=== PATIENT | female | born 1935 | race Caucasian/White ===

== ENCOUNTER → 2017-05-15 | Outpatient (CLI) | payer BC, OTHER ==
[~2017-05-15] MED LIST: ASCO500T16 PO; ASMIN/30 INH; ASPEC81 PO; CETI10TA84 PO; CLTP PO; FLUO10CA48 PO; INDA1TAB3 PO; LOSA1TAB38 PO; MINERAL PO; MULTIVITAMIN PO; OMEG10007 PO; PRLSR20 PO; SYN125 PO
== END | disposition home or self-care (01) ==
LOC: C.MAMM 10:16
PROVIDERS: ATTEND Internal Medicine
DX: M81.0 Age-related osteoporosis without current pathological fracture (principal)

== ENCOUNTER → 2017-10-15 | Outpatient (CLI) | payer OTHER ==
[2017-10-15 12:27] LABS: BLOOD UREA NITROGEN 19 mg/dl (7-18); BUN/CREATININE RATIO 18.8 (10-20); CALCIUM 8.6 mg/dl (8.5-10.1); CARBON DIOXIDE 33 mmol/L (21-32); CHLORIDE 102 mmol/L (98-107); CREATININE 1.03 mg/dl (0.60-1.20); GLUCOSE 112 mg/dl (70-99); SODIUM 139 mmol/L (136-145)
[2017-10-15 12:41] LABS: URIC ACID 4.9 mg/dl (2.6-7.2)
== END | disposition home or self-care (01) ==
LOC: C.LABBFT 09:20
PROVIDERS: ATTEND Physician Assistant Medical
DX: E03.9 Hypothyroidism, unspecified (principal); I10 Essential (primary) hypertension; M10.9 Gout, unspecified

== ENCOUNTER 2021-09-02 09:41 | Inpatient (IN) ==
--- NOTE | 2021-09-02 10:11 | Emergency Department Note ---
History of Present Illness General Chief complaint: Hypertension Stated complaint: HIGH BP DIZZY Time Seen by Provider: 09/02/21 09:53 Source: patient Mode of arrival: ambulatory Limitations: no limitations History of Present Illness Provider complaint: Vertigo, hypertension Onset (ago): day(s) 3 Associated symptoms: no chest pain, no fever/chills, no headaches, no nausea/vomiting, no shortness of breath or no syncope Treatments prior to arrival: none This is an 85-year-old female presents emergency department complaining of vertigo and high blood pressure this morning. Patient states she has noted intermittent vertigo when turning to the left while in bed over the last several nights. She states she has intermittently had episodes during the day but it does seem more pronounced at night. She states this morning the dizziness felt more severe, and was not easing so she asked her to come help her and check her blood pressure. They found an elevated blood pressure reading at home. Patient states she does take blood pressure medication however it had never been this high previously. She denies headaches, vision changes, tinnitus, fevers or chills. She denies any recent chest pain, palpitations, shortness of breath, leg swelling. No recent change in bowel or bladder function. Patient states she did recently start taking an OTC supplement to help with nocturia. Patient does take low-dose aspirin daily, no other antiplatelet or anticoagulation medications. No recent trauma or change in activity. Patient states she does have a prior history of vertigo which initially started following a closed head injury 4 to 5 years ago. She states she did complete vestibular physical therapy and it had completely resolved until several nights ago when it returned again. No recent URI symptoms or infection. Pt seen during a time of high acuity and national emergency pandemic while wearing PPE. Home Medications Medication Instructions Recorded Confirmed Type allopurinol 300 mg tablet 150 mg PO QAM tab 06/30/19 09/02/21 History diphenhydramine HCl 25 mg tablet 25 mg PO HS PRN tab 06/30/19 09/02/21 History omeprazole 20 mg capsule,delayed 20 mg PO DAILY PRN #30 cap 07/08/19 09/02/21 Rx release ascorbic acid (vitamin C) 500 mg 500 mg PO QAM 09/02/21 09/02/21 History capsule aspirin 81 mg tablet,delayed 81 mg PO QAM 09/02/21 09/02/21 History release (Adult Low Dose Aspirin) calcium carbonate 600 mg(1,500 1 tab PO QAM 09/02/21 09/02/21 History mg)-vitamin D3 800 unit chewable tablet (Caltrate 600 plus D) cetirizine 10 mg capsule (Zyrtec) 10 mg PO QAM PRN 09/02/21 09/02/21 History levothyroxine 125 mcg tablet 125 mcg PO QAM 09/02/21 09/02/21 History losartan 100 1 tab PO QAM 09/02/21 09/02/21 History mg-hydrochlorothiazide 25 mg tablet multivitamin 1 tab PO QAM 09/02/21 09/02/21 History omega-3 fatty acids 1,000 mg 1,000 mg PO QAM 09/02/21 09/02/21 History capsule (Fish Oil Concentrate) sour pardo extract 1,000 mg 1,000 mg PO UD PRN 09/02/21 09/02/21 History capsule (Tart Pardo Extract) Allergies Allergy/AdvReac Type Severity Reaction Status Date / Time Sulfa (Sulfonamide Allergy Severe TONGUE Verified 09/02/21 10:39 Antibiotics) SWELLING JORGE Inhibitors AdvReac cough Verified 09/02/21 10:39 Past Med/Surg History Medical History Actinic keratosis Allergic rhinitis Anxiety Asthma Depression Gastroesophageal reflux disease Gout History of basal cell carcinoma Hypertension Hypothyroidism Idiopathic urticaria Impaired fasting glucose Osteoporosis Personal history of malignant melanoma of skin Polycythemia Seborrheic keratosis Surgical History H/O colonoscopy History of dilatation and curettage History of lumpectomy of right breast S/P tonsillectomy Status post Mohs micrographic surgery for basal cell carcinoma (BCC) Status post partial thyroidectomy Family History Aunt Breast cancer Mother Myocardial infarction Father Myocardial infarction Denies family history of Ovarian cancer Prostate cancer Colorectal cancer Social History Smoking Status: Never smoker Age Started Using Tobacco: 16; Age Quit Using Tobacco: 26; Hx Alcohol Use: Yes Alcohol type: wine Alcohol Intake Frequency Comment: 2-3 glasses of homemade wine per day. 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 Other Information That Helps Us Care for You: No Feels Safe at Home: Yes Dental Care, Regularly: Yes Physical Activity Frequency: Does not Exercise Assistive Devices: Glasses and Oxygen - Continuous Review of Systems A total of 10 systems reviewed and were otherwise negative All systems reviewed & are unremarkable except as noted in HPI & below Physical Exam Vital Signs Vital Signs - 24 hr 09/02/21 09:46 09/02/21 10:00 09/02/21 10:30 Temperature 36.3 C L Temperature Source Temporal Artery Scan Pulse Rate 75 Pulse Rate [Apical] 82 72 Pulse Rhythm Regular Pulse Strength Normal Respiratory Rate 20 21 18 Respiratory Effort / Characteristics Non-Labored Spontaneous Respiratory Depth Normal Respiratory Pattern Regular Blood Pressure 185/93 H Blood Pressure [Right Arm] 181/101 H 165/99 H Blood Pressure Mean 123 Blood Pressure Mean [Right Arm] 127 121 Blood Pressure Position Sitting Blood Pressure Position [Right Arm] Sitting Pulse Oximetry 92 93 91 Oxygen Delivery Method Room Air Room Air Room Air Oxygen Flow Rate Sepsis New/Unexplained Change in Mental Status N/A Sepsis Action Taken by Nursing No Action Required Oxygen Flow Rate - Titration Fraction of Inspired Oxygen - Titration 09/02/21 11:01 09/02/21 11:30 09/02/21 11:41 Temperature Temperature Source Pulse Rate Pulse Rate [Apical] 72 70 Pulse Rhythm Pulse Strength Respiratory Rate 16 18 Respiratory Effort / Characteristics Respiratory Depth Respiratory Pattern Blood Pressure Blood Pressure [Right Arm] 159/86 H 162/88 H Blood Pressure Mean Blood Pressure Mean [Right Arm] 110 112 Blood Pressure Position Blood Pressure Position [Right Arm] Sitting Pulse Oximetry 91 89 L 88 L Oxygen Delivery Method Room Air Room Air Room Air Oxygen Flow Rate Sepsis New/Unexplained Change in Mental Status Sepsis Action Taken by Nursing Oxygen Flow Rate - Titration 2 Fraction of Inspired Oxygen - Titration 97 09/02/21 12:00 09/02/21 13:00 Temperature Temperature Source Pulse Rate Pulse Rate [Apical] 74 70 Pulse Rhythm Pulse Strength Respiratory Rate 22 15 Respiratory Effort / Characteristics Respiratory Depth Respiratory Pattern Blood Pressure Blood Pressure [Right Arm] 176/86 H 148/94 H Blood Pressure Mean Blood Pressure Mean [Right Arm] 116 112 Blood Pressure Position Blood Pressure Position [Right Arm] Sitting Pulse Oximetry 99 99 Oxygen Delivery Method Nasal Cannula Nasal Cannula Oxygen Flow Rate 2 2 Sepsis New/Unexplained Change in Mental Status Sepsis Action Taken by Nursing Oxygen Flow Rate - Titration Fraction of Inspired Oxygen - Titration GENERAL: alert, well appearing, well nourished, no distress, non-toxic EYE EXAM: normal conjunctiva, PERRL and EOM's grossly intact, no nystagmus OROPHARYNX: no exudate, no erythema, lips, buccal mucosa, and tongue normal and mucous membranes are moist NECK: supple, no nuchal rigidity, no adenopathy, non-tender LUNGS: Clear to auscultation. Normal chest wall mechanics, no w/r/r HEART: no murmurs, S1 normal and S2 normal, occasional PVC noted on telemetry, patient states she is aware of this and these have previously been noted ABDOMEN: abdomen soft, non-tender, normo-active bowel sounds, no masses, no rebound or guarding. BACK: Back is symmetrical on inspection and there is no deformity, no midline tenderness, no CVA tenderness. SKIN: no rashes and no bruising UPPER EXTREMITIES: upper extremities are grossly normal. FROM, nml pulses b/l. LOWER EXTREMITIES: No pitting edema. FROM, nml pulses b/l. NEURO EXAM: Normal sensorium, cranial nerves II-XII grossly intact, normal speech, no facial droop, no gross weakness of arms, no gross weakness of legs. No ataxia. Gross sensation intact. Course Course 1226: Patient updated on results at bedside. Patient's blood pressure is still elevated, the patient states she had not taken any of her morning medications prior to coming in. She states she feels her dizziness is improved, however has not walked around to see if it comes back and has not attempted to lay flat and roll over in bed. I discussed with the patient the observation of her hypoxia down to 88% on room air. While this was at rest, patient states she notes at home she feels significantly short of breath with any exertion. Patient denies that this is ever been evaluated by her PCP. She denies any prior cardiac or pulmonary evaluation by a specialist. No prior echo or stress test. Patient states she has a very remote smoking history in her youth, no prior diagnosis of COPD or asthma. Patient does feel noticeably improved with addition of oxygen here. I suspect that if her room air saturation reached 88% at rest, with an ambulatory trial she would be even further diminished. 1252: Discussed with [facility] hospitalist team. They would like CT of the chest added. Administered Medications Allopurinol (Allopurinol 300 Mg Tab) 150 mg PO QAM MOON Stop: 10/03/21 08:59 Last Admin: 09/03/21 08:04 Dose: 150 mg Documented by: [id number] Aspirin (Aspirin 81 Mg Ectab) 81 mg PO QAM MOON Stop: 10/03/21 08:59 Last Admin: 09/03/21 08:05 Dose: 81 mg Documented by: [id number] Cetirizine HCl (Cetirizine Hcl 10 Mg Tablet) 10 mg PO QAM PRN PRN Reason: allergy symptoms Stop: 10/02/21 15:58 Last Admin: 09/03/21 11:46 Dose: 10 mg Documented by: [id number] Doxycycline Hyclate (Doxycycline Hyclate 100 Mg Cap) 100 mg PO BID MOON Stop: 09/05/21 09:59 Last Admin: 09/03/21 10:57 Dose: 100 mg Documented by: [id number] HCTZ/Losartan Potassium (Losartan/Hctz 50/12.5mg Tab) 1 tab PO QAM MOON Stop: 10/03/21 08:59 Last Admin: 09/03/21 08:05 Dose: 1 tab Documented by: [id number] Levothyroxine Sodium (Levothyroxine Sodium 125 Mcg Tablet) 125 mcg PO DAILYBB [facility] Stop: 10/03/21 06:29 Last Admin: 09/03/21 06:26 Dose: 125 mcg Documented by: [id number] Multivitamins (Multivitamin Tab) 1 tab PO QAM MOON Stop: 10/03/21 08:59 Last Admin: 09/03/21 08:06 Dose: 1 tab Documented by: [id number] Discontinued Medications Gadobutrol (Gadobutrol 30ml Vial) 7.2 ml IV ONCE ONE Stop: 09/03/21 16:03 Last Admin: 09/03/21 16:02 Dose: 7.2 ml Documented by: [id number] Hydrochlorothiazide (Hydrochlorothiazide 25 Mg Tab) 12.5 mg PO NOW STA Stop: 09/02/21 12:37 Last Admin: 09/02/21 13:17 Dose: 12.5 mg Documented by: [id number] Sodium Chloride (Nss) 500 mls @ 125 mls/hr IV .Q4H MOON Stop: 10/02/21 10:14 Last Admin: 09/02/21 17:11 Dose: Not Given Documented by: [id number] Infusion: 09/02/21 17:05 Dose: 0 mls/hr Documented by: [id number] Admin: 09/02/21 10:25 Dose: 125 mls/hr Documented by: [id number] Ioversol (Optiray 320 125ml) 120 ml IV ONCE ONE Stop: 09/02/21 11:29 Last Admin: 09/02/21 11:29 Dose: 120 ml Documented by: [id number] Losartan Potassium (Losartan Potassium 25 Mg Tab) 25 mg PO NOW STA Stop: 09/02/21 12:37 Last Admin: 09/02/21 13:17 Dose: 25 mg Documented by: [id number] Medical Decision Making Differential Diagnosis Differential diagnosis includes etiologies such as benign positional vertigo, dehydration, hypovolemia, anemia, tumor, infection, hypoglycemia, electrolyte abnormalities, cardiac sources, intracerebral event, toxicologic, neurologic, as well as others were entertained. Medical Records Attestation: I reviewed the patient's medical records. Home Medications Current Medication List: was personally reviewed by me Laboratory Data Attestation: I reviewed the patient's lab results. Result diagrams: 09/03/21 08:11 09/03/21 08:11 Lab Results 09/02/21 09/02/21 Range/Units 10:20 10:20 WBC 4.55 L (4.8-10.8) K/uL RBC 4.77 (4.2-5.4) M/uL Hgb 16.3 H (12.0-16.0) g/dL Hct 48.4 H (37-47) % MCV 101.5 H (80-100) fL MCH 34.2 H (25-34) pg MCHC 33.7 (32-36) g/dL RDW Std Deviation 49.5 H (36.4-46.3) fL RDW Coeff of [place] 13.3 (11.5-14.5) % Plt Count 170 (130-400) K/uL MPV 11.8 H (7.4-10.4) fL Immature Gran % (Auto) 0.2 % Neut % (Auto) 52.7 % Lymph % (Auto) 31.6 % [place] % (Auto) 9.2 % Eos % (Auto) 5.9 % Baso % (Auto) 0.4 % Neut # (Auto) 2.39 (1.4-6.5) K/uL Lymph # (Auto) 1.44 (1.2-3.4) K/uL [place] # (Auto) 0.42 (0.11-0.59) K/uL Eos # (Auto) 0.27 (0-0.5) K/uL Baso # (Auto) 0.02 (0-0.2) K/uL Immature Gran # (Auto) 0.01 (0.00-0.02) K/uL Sodium 142 (136-145) mmol/L Potassium 3.6 (3.5-5.1) mmol/L Chloride 105 (98-107) mmol/L Carbon Dioxide 32 (21-32) mmol/L Anion Gap 5.0 (3-11) BUN 19 H (7-18) mg/dl Creatinine 0.94 (0.6-1.2) mg/dl Est Cr Clr Drug Dosing Not Reportable Est GFR ( Amer) 64.1 ml/min Est GFR (Non-Af Amer) 55.3 ml/min BUN/Creatinine Ratio 20.1 H (10-20) Glucose 101 H (70-99) mg/dl Calcium 9.1 (8.5-10.1) mg/dl Magnesium 2.2 (1.8-2.4) mg/dl Total Bilirubin 0.5 (0.2-1) mg/dl AST 21 (15-37) U/L ALT 20 (12-78) U/L Alkaline Phosphatase 71 (45-117) U/L Troponin I < 0.015 (0-0.045) ng/ml NT-Pro-B Natriuret Pep 278 (0-1800) pg/ml Total Protein 6.8 (6.4-8.2) gm/dl Albumin 3.2 L (3.4-5.0) gm/dl Globulin 3.6 (2.5-4.0) gm/dl Albumin/Globulin Ratio 0.9 (0.9-2) Lipase 150 (73-393) U/L TSH 1.870 (0.300-4.500) uIu/ml Imaging Data Radiologist's Impression: Head CT 09/02/21 10:[address] DOSE: HISTORY: dizzy, htn TECHNIQUE: Multiaxial CT images of the head were performed without the use of in travenous contrast. Automated exposure control was utilized for this study. A dose lowering technique was utilized adhering to the principles of ALARA. Comparison: Head CT 04/10/2015. Findings: The paranasal sinuses and mastoid air cells are clear. The calvarium and skull base are intact. There is no mass, hematoma, midline shift, acute infarct. White matter hypodensity is nonspecific but suggestive of microvascular ischemic change. The ventricles and sulci demonstrate mild age-related involutional changes. Impression: No acute intracranial abnormality. Atrophy and microvascular ischemic changes. ACT 112: Negative or not required by law. Electronically signed by: Sudeep Everett M.D. 09/02/2021 11:35 AM Head CTA 09/02/21 10:06 HEAD & NECK CTA HISTORY: dizzy, htn TECHNIQUE: Multiaxial CT images of the head were performed following the intravenous administration of contrast to evaluate the major cerebral vessels. Multiaxial CT images of the neck were also performed following the intravenous administration of contrast to evaluate the major cervical vessels. Maximum intensity projection images were also obtained. A dose lowering technique was utilized adhering to the principles of ALARA. COMPARISON: None. FINDINGS: There is no mass, hematoma, midline shift, or acute infarct. Visualized intracranial internal carotid arteries, distal vertebral arteries, and basilar artery are widely patent. 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 Bilateral posterior circulations which are considered to be normal variants. The major dural venous sinuses are patent. The aortic arch and proximal great vessels are widely patent. There is no significant stenosis, occlusion, or dissection identified within the bilateral common carotid, internal carotid, or vertebral arteries. The right thyroid lobe appears surgically absent. IMPRESSION: 1. No significant stenosis, occlusion, or aneurysm within the [place]. 2. No significant stenosis, occlusion, or dissection identified within the carotid or vertebral arteries. ACT 112: Negative or not required by law. Electronically signed by: Sudeep Everett M.D. 09/02/2021 11:43 AM Neck CTA 09/02/21 10:06 HEAD & NECK CTA HISTORY: dizzy, htn TECHNIQUE: Multiaxial CT images of the head were performed following the intravenous administration of contrast to evaluate the major cerebral vessels. M ultiaxial CT images of the neck were also performed following the intravenous administration of contrast to evaluate the major cervical vessels. Maximum intensity projection images were also obtained. A dose lowering technique was utilized adhering to the principles of ALARA. COMPARISON: None. FINDINGS: There is no mass, hematoma, midline shift, or acute infarct. Visualized intracranial internal carotid arteries, distal vertebral arteries, and basilar artery are widely patent. 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 Bilateral posterior circulations which are considered to be normal variants. The major dural venous sinuses are patent. The aortic arch and proximal great vessels are widely patent. There is no significant stenosis, occlusion, or dissection identified within the bilateral common carotid, internal carotid, or vertebral arteries. The right thyroid lobe appears surgically absent. IMPRESSION: 1. No significant stenosis, occlusion, or aneurysm within the [place]. 2. No significant stenosis, occlusion, or dissection identified within the carotid or vertebral arteries. ACT 112: Negative or not required by law. Electronically signed by: Sudeep Everett M.D. 09/02/2021 11:43 AM Chest X-Ray 09/02/21 11:40 XR chest 1V portable HISTORY: hypoxia COMPARISON: Chest 05/09/2014. FINDINGS: The cardiac silhouette remains top normal in size. A right basilar linear density consistent with scarring or subsegmental atelectasis. This remains unchanged. Hazy appearance to the medial lung bases likely represents prominent mediastinal fat. This is also stable. No new focal lung consolidations to suggest pneumonia. No evidence for pulmonary edema. No pleural effusions. No pneumothorax. Old, healed left-sided rib fractures. IMPRESSION: Chronic changes as described above. No acute process within the chest. ACT 112: Negative or not required by law. Electronically signed by: Sudeep Everett M.D. 09/02/2021 11:[address] 09/02/21 13:02 CT chest diagnostic wo con CT DOSE: 335.93 mGy.cm HISTORY: dyspnea, hypoxia TECHNIQUE: Multiaxial CT images of the chest were performed without contrast. A dose lowering technique was utilized adhering to the principles of ALARA. COMPARISON: Chest CT 02/04/2012. FINDINGS: No pneumothorax. No pleural effusions. Small fat-containing right- sided [place] hernia, unchanged. Mild diffuse bronchial wall thickening. However, the central airways are patent. Mild interstitial thickening with scattered tree-in-bud nodular opacities seen within the lungs. Small wedge- shaped focal density within the left upper lobe posteriorly on image 50. This favors an area of scarring. There are small scarlike densities within the lung apices. There is a 4 mm nodule within the right upper lobe on image 99. There is a 5 mm subpleural nodule within the right lower lobe on image 153. This remains unchanged. No new focal lung consolidations. No suspicious lytic are blastic osseous lesions. A 1.4 cm hypodense lesion within the left hepatic lobe. This favors a cyst. There is a partially calcified exophytic cyst at the splenic dome. The visualized adrenal glands are unremarkable. There is a small hiatus hernia. The heart is normal in size. No pericardial effusion. Normal caliber thoracic aorta. IMPRESSION: 1. Mild diffuse bronchial wall thickening. This is likely chronic. 2. Mild interstitial thickening with scattered tree-in-bud nodular opacities. This favors a chronic infectious bronchiolitis. 3. No focal lung consolidations. 4. Additional findings as described above. ACT 112: Negative or not required by law. Electronically signed by: Sudeep Everett M.D. 09/02/2021 2:29 PM ECG Data Attestation: I personally reviewed and interpreted this ECG as follows: Indication: + SOB/dyspnea Rate (beats per minute): 82 Rhythm: + normal sinus ECG Intervals/blocks: + First degree AV block, + Normal QRS and + Normal QT ECG [place]: + Normal ECG ST segments: + Normal ST segments ECG Findings: + PVCs MDM Narrative This is an 85-year-old female who presents emergency department complaining of dizziness and hypertension. Patient does have a history of hypertension and does take medication. No recent trauma or change in activity. Patient with remote history of vertigo however had not had issues until the last several days. Patient well-appearing here and had a normal and nonfocal neuro exam. Patient's blood pressure improved while here, patient underwent labs and CT imaging as a precaution given advanced age and comorbidities. He was noted by nursing staff that patient became hypoxic while at rest, and did appear short of breath with attempt to go to the bathroom. When discussed with this at bedside patient stated she has been short of breath with exertion for a while, cannot recall when this began, and has never had any evaluation for it. Patient did states she is markedly improved with the oxygen in place. Patient denied any accompanying chest pain but does state that with any exertion at home or attempt to go up steps, she becomes very short of breath and has to stop and rest for least 10 minutes before her symptoms began to susu. While there is no obvious evidence of acute neurologic etiology of her dizziness, I am more concerned about the hypoxia and possible underlying etiology. Case discussed with hospitalist for additional cardiac evaluation as a precaution. They did request a CT of the chest on the patient as a precaution to rule out additional pulmonary etiology including PE. This was performed and was negative. Patient remained well-appearing and hemodynamically stable in the emergency room. Patient's blood pressure did improve. Whether may be a component of hypertensive urgency, there is no evidence of hypertensive emergency. I feel it is more likely patient's recurrent dizziness was caused by her benign positional vertigo, and the distress of her symptoms may have contributed to her hyperten kimi. An order was placed for continuous cardiac monitoring. The monitor shows a rate of _86__ with _normal sinus__ rhythm. Impression & Plan Dizziness, Hypoxia, Hypertension Discharge Plan Visit Data Chief Complaint: Hypertension Stated Complaint: HIGH BP DIZZY Discharge Problem: Dizziness, Hypoxia, Hypertension Patient Disposition: Admitted As Inpatient Discharge Instructions Interventions: ED Discharge Assessment Last Done: 09/02/21 14:47
[2021-09-02] MEDS: SODIUM CHLORIDE 0.9% 500 ML IV SCH ×2 (10:25→17:11)
[2021-09-02 10:39] LABS: Basophils # (auto) 0.02 K/uL (0-0.2); Basophils % (auto) 0.4 %; Eosinophils # (auto) 0.27 K/uL (0-0.5); Eosinophils % (auto) 5.9 %; Hematocrit (blood only) 48.4 % (37-47); Hemoglobin 16.3 g/dL (12.0-16.0); Immature Granulocytes # (auto) 0.01 K/uL (0.00-0.02); Immature Granulocytes % (auto) 0.2 %; Lymphocytes # (auto) 1.44 K/uL (1.2-3.4); Lymphocytes % (auto) 31.6 %; Mean Corpuscular Hemoglobin 34.2 pg (25-34); Mean Corpuscular Hgb Conc 33.7 g/dL (32-36); Mean Corpuscular Volume 101.5 fL (80-100); Mean Platelet Volume 11.8 fL (7.4-10.4); Monocytes # (auto) 0.42 K/uL (0.11-0.59); Monocytes % (auto) 9.2 %; Neutrophils # (auto) 2.39 K/uL (1.4-6.5); Neutrophils % (auto) 52.7 %; Platelet Count 170 K/uL (130-400); RDW Coefficient of Variation 13.3 % (11.5-14.5); RDW Standard Deviation 49.5 fL (36.4-46.3); Red Blood Count 4.77 M/uL (4.2-5.4); White Blood Count 4.55 K/uL (4.8-10.8)
[2021-09-02 10:59] LABS: Alanine Aminotransferase 20 U/L (12-78); Albumin Level 3.2 gm/dl (3.4-5.0); Aspartate Aminotransferase 21 U/L (15-37); BUN Creatinine Ratio 20.1 (10-20); Blood Urea Nitrogen 19 mg/dl (7-18); Calcium 9.1 mg/dl (8.5-10.1); Carbon Dioxide 32 mmol/L (21-32); Chloride 105 mmol/L (98-107); Est GFR (African American) 64.1 ml/min; Est GFR (Non-African American) 55.3 ml/min; Glucose 101 mg/dl (70-99); Lipase 150 U/L (73-393); Magnesium 2.2 mg/dl (1.8-2.4); Potassium 3.6 mmol/L (3.5-5.1); Sodium 142 mmol/L (136-145)
[2021-09-02 11:10] LABS: Albumin Globulin Ratio 0.9 (0.9-2); Alkaline Phosphatase 71 U/L (45-117); Bilirubin,Total 0.5 mg/dl (0.2-1); Globulin 3.6 gm/dl (2.5-4.0); NT Pro B Type Natriuretic Pept 278 pg/ml (0-1800); Total Protein 6.8 gm/dl (6.4-8.2); Troponin I < 0.015 ng/ml (0-0.045)
[2021-09-02] MEDS ORDERED: OPTIRAY 320 125ml IV ONE (11:28)
--- NOTE | 2021-09-02 11:37 | CT Scan Report ---
HEAD CT NONCONTRAST CT DOSE: HISTORY: dizzy, htn TECHNIQUE: Multiaxial CT images of the head were performed without the use of intravenous contrast. A utomated exposure control was utilized for this study. A dose lowering technique was utilized adheri ng to the principles of ALARA. Comparison: Head CT 04/10/2015. Findings: The paranasal sinuses and mastoid air cells are clear. The calvarium and skull base are int act. There is no mass, hematoma, midline shift, acute infarct. White matter hypodensity is nonspecifi c but suggestive of microvascular ischemic change. The ventricles and sulci demonstrate mild age-rela millicent involutional changes. Impression: No acute intracranial abnormality. Atrophy and microvascular ischemic changes. ACT 112: Negative or not required by law. Electronically signed by: Sudeep Everett M.D. 09/02/2021 11:35 AM
--- NOTE | 2021-09-02 11:44 | CT Scan Report ---
HEAD & NECK CTA HISTORY: dizzy, htn TECHNIQUE: Multiaxial CT images of the head were performed following the intravenous administration o f contrast to evaluate the major cerebral vessels. Multiaxial CT images of the neck were also perform ed following the intravenous administration of contrast to evaluate the major cervical vessels. Maxim um intensity projection images were also obtained. A dose lowering technique was utilized adhering to the principles of ALARA. COMPARISON: None. FINDINGS: There is no mass, hematoma, midline shift, or acute infarct. Visualized intracranial internal carotid arteries, distal vertebral arteries, and basilar artery are widely patent. There is no significant s tenosis, occlusion, or aneurysm seen within the bilateral ACAs, MCAs, or candy packer. Bilateral posterior fe [place] circulations which are considered to be normal variants. The major dural venous sinuses are paten t. The aortic arch and proximal great vessels are widely patent. There is no significant stenosis, occ lusion, or dissection identified within the bilateral common carotid, internal carotid, or vertebral arteries. The right thyroid lobe appears surgically absent. IMPRESSION: 1. No significant stenosis, occlusion, or aneurysm within the ute of [place]. 2. No significant stenosis, occlusion, or dissection identified within the carotid or vertebral arter ies. ACT 112: Negative or not required by law. Electronically signed by: Sudeep Everett M.D. 09/02/2021 11:43 AM
--- NOTE | 2021-09-02 11:44 | CT Scan Report ---
HEAD & NECK CTA HISTORY: dizzy, htn TECHNIQUE: Multiaxial CT images of the head were performed following the intravenous administration o f contrast to evaluate the major cerebral vessels. Multiaxial CT images of the neck were also perform ed following the intravenous administration of contrast to evaluate the major cervical vessels. Maxim um intensity projection images were also obtained. A dose lowering technique was utilized adhering to the principles of ALARA. COMPARISON: None. FINDINGS: There is no mass, hematoma, midline shift, or acute infarct. Visualized intracranial internal carotid arteries, distal vertebral arteries, and basilar artery are widely patent. There is no significant s tenosis, occlusion, or aneurysm seen within the bilateral ACAs, MCAs, or analytic manager. Bilateral posterior fe [place] circulations which are considered to be normal variants. The major dural venous sinuses are paten t. The aortic arch and proximal great vessels are widely patent. There is no significant stenosis, occ lusion, or dissection identified within the bilateral common carotid, internal carotid, or vertebral arteries. The right thyroid lobe appears surgically absent. IMPRESSION: 1. No significant stenosis, occlusion, or aneurysm within the [place] of [place]. 2. No significant stenosis, occlusion, or dissection identified within the carotid or vertebral arter ies. ACT 112: Negative or not required by law. Electronically signed by: Sudeep Everett M.D. 09/02/2021 11:43 AM
--- NOTE | 2021-09-02 11:59 | XRay Report ---
XR chest 1V portable HISTORY: hypoxia COMPARISON: Chest 05/09/2014. FINDINGS: The cardiac silhouette remains top normal in size. A right basilar linear density consisten t with scarring or subsegmental atelectasis. This remains unchanged. Hazy appearance to the medial saw ng bases likely represents prominent mediastinal fat. This is also stable. No new focal lung consolid ations to suggest pneumonia. No evidence for pulmonary edema. No pleural effusions. No pneumothorax. Old, healed left-sided rib fractures. IMPRESSION: Chronic changes as described above. No acute process within the chest. ACT 112: Negative or not required by law. Electronically signed by: Sudeep Everett M.D. 09/02/2021 11:58 AM
[2021-09-02] MEDS ORDERED: LOSARTAN POTASSIUM 25 MG TAB PO STA (12:36)
[2021-09-02] MEDS ORDERED: hydroCHLOROthiazide 25 MG TAB PO STA (12:36)
[2021-09-02] MEDS ORDERED: ACETAMINOPHEN 325 MG TAB PO PRN (13:16)
--- NOTE | 2021-09-02 14:10 | History & Physical Report ---
Date of Service September 02, 2021 Assessment & Plan (1) Vertigo: (2) Hypoxia: (3) Dyspnea on exertion: Plan: Patient presents to the ED due to vertigo/dizziness Says that she had some vertigo/dizziness, some years ago after head injury, rep orts this resolved with physical therapy However says that it's been now recurrent for past 2 days and today it has been worse and also somewhat unusual for her CT head, CTA head and neck in the ED unremarkable Possible BPPV, will order PT with [place] maneuvers Meclizine as needed Possibly in the setting of hypertension, patient says that her BP was elevated more than usual this morning before she took her medications Hypoxia, dyspnea on exertion In the ED found to be hypoxic to 88% Chest x-ray unremarkable, Covid negative 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 Procalcitonin negative. Not likely infection. Troponin negative. Obtained CT chest without contrast 1. Mild diffuse bronchial wall thickening. This is likely chronic. 2. Mild interstitial thickening with scattered tree-in-bud nodular opacities. This favors a chronic infectious bronchiolitis. 3. No focal lung consolidations. 4. Additional findings as described above. Obtained echocardiogram Mild concentric LVH. LV wall motion is normal. LVEF 55 to 60%. RV is normal in size and function. Aortic valve sclerosis mild, without significant aortic valvular stenosis. Grade 1 diastolic dysfunction. Continue supplemental oxygen, as needed we will try to wean off, or obtain 2 step study Patient also may need sleep study as outpatient Can try doxycycline Per record, history of asthma, patient denies any history of asthma, no wheezing on physical exam noted, therefore no steroid indicated at this time Continue to closely monitor (4) Gout: Plan: -Continue home allopurinol (5) Hypertension: Plan: -At home on HCTZ/losartan -Blood pressure elevated in the ED, however patient did not take her medications -Continue to closely follow, continue home medication (6) Hypothyroidism: Plan: -Continue home levothyroxine (7) Polycythemia: Plan: -Hemoglobin elevated at baseline around 16, follows with hematology yearly routinely DVT ppx: SCDs History of Present Illness Chief Complaint: vertigo, dyspnea on exertion Primary Care Provider: Julia Meyers DO 85-year-old female with history of hypertension, gout, depression anxiety, osteoporosis, CKD stage IIIa, urinary incontinence, history of elevated hemoglobin since 2017 (routinely follows with hematology yearly), who presents with vertigo and elevated blood pressure. Patient reported in ED that she had history of vertigo several years ago after head injury which then resolved with PT therapy. She also did not take her blood pressure medications today and noted to have very high blood pressure at home (patient reports systolic blood pressure about 170 which is reportedly unusual for her), and therefore wanted to be evaluated in the ED. In addition she says that she was having vertigo for past 2 days however this morning it was the worst. She needed help of her to get her out of bed and she had to hold onto furniture. During this episode however she denies having any chest pain, palpitations, dizziness, lightheadedness, shortness of breath feeling that she would faint. She also denied any abdominal pain, nausea vomiting. Denies any headache. Says she had one episode of diarrhea about 2 days ago. In ED she was found to be hypoxic down to 88%. And reported that she has been having dyspnea on exertion for some time. Patient says that since Covid pandemic she has not been out as much, however they do have stairs at home that she has been taking and that makes her short of breath. 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 Chest x-ray was unremarkable, CT head, CTA head and neck also unremarkable. Blood pressure was elevated in the ED, and they restarted her home medications. No nystagmus noted in the ED. After discussing further with ED provider, there was concern that patient has progressive dyspnea on exertion, possible cardiac etiology and inpatient admission was recommended. Also discussed obtaining CT chest without contrast to further evaluate hypoxia. Covid was negative in ED. Allergies Allergy/AdvReac Type Severity Reaction Status Date / Time Sulfa (Sulfonamide Allergy Severe TONGUE Verified 09/02/21 10:39 Antibiotics) SWELLING JORGE Inhibitors AdvReac cough Verified 09/02/21 10:39 Home Medications Medication Instructions Recorded Confirmed Type allopurinol 300 mg tablet 150 mg PO QAM tab 06/30/19 09/02/21 History diphenhydramine HCl 25 mg tablet 25 mg PO HS PRN tab 06/30/19 09/02/21 History omeprazole 20 mg capsule,delayed 20 mg PO DAILY PRN #30 cap 07/08/19 09/02/21 Rx release ascorbic acid (vitamin C) 500 mg 500 mg PO QAM 09/02/21 09/02/21 History capsule aspirin 81 mg tablet,delayed 81 mg PO QAM 09/02/21 09/02/21 History release (Adult Low Dose Aspirin) calcium carbonate 600 mg(1,500 1 tab PO QAM 09/02/21 09/02/21 History mg)-vitamin D3 800 unit chewable tablet (Caltrate 600 plus D) cetirizine 10 mg capsule (Zyrtec) 10 mg PO QAM PRN 09/02/21 09/02/21 History levothyroxine 125 mcg tablet 125 mcg PO QAM 09/02/21 09/02/21 History losartan 100 1 tab PO QAM 09/02/21 09/02/21 History mg-hydrochlorothiazide 25 mg tablet multivitamin 1 tab PO QAM 09/02/21 09/02/21 History omega-3 fatty acids 1,000 mg 1,000 mg PO QAM 09/02/21 09/02/21 History capsule (Fish Oil Concentrate) sour pardo extract 1,000 mg 1,000 mg PO UD PRN 09/02/21 09/02/21 History capsule (Tart Pardo Extract) Past Med/Surg History Medical History Actinic keratosis Allergic rhinitis Anxiety Asthma Depression Gastroesophageal reflux disease Gout History of basal cell carcinoma Hypertension Hypothyroidism Idiopathic urticaria Impaired fasting glucose Osteoporosis Personal history of malignant melanoma of skin Polycythemia Seborrheic keratosis Surgical History H/O colonoscopy History of dilatation and curettage History of lumpectomy of right breast S/P tonsillectomy Status post Mohs micrographic surgery for basal cell carcinoma (BCC) Status post partial thyroidectomy Family History Aunt Breast cancer Mother Myocardial infarction Father Myocardial infarction Denies family history of Ovarian cancer Prostate cancer Colorectal cancer Social History Smoking Status: Never smoker Age Started Using Tobacco: 16; Age Quit Using Tobacco: 26; Hx Alcohol Use: Yes Alcohol type: wine Alcohol Intake Frequency Comment: 2-3 glasses of homemade wine per day. 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 Other Information That Helps Us Care for You: No Feels Safe at Home: Yes Dental Care, Regularly: Yes Physical Activity Frequency: Does not Exercise Assistive Devices: Glasses and Oxygen - Continuous Review of Systems Review of Systems: All systems reviewed & are unremarkable except as noted in HPI & below Physical Exam Constitutional: WD/WN, vitals as above Eyes: PERRL, conjunctivae normal, anicteric sclerae ENMT: external ear and nose normal, oropharynx normal Respiratory: normal respiratory effort, lungs clear to auscultation (however pt on 2L of NC) Cardiovascular: RRR, no murmur, no edema Chest (Breasts): Chest: normal inspection of chest Gastrointestinal (Abdomen): normal bowel sounds, soft, nontender, no hepatos plenomegaly Musculoskeletal: no cyanosis or clubbing, extremities motor strength 5/5 Skin: no rashes, warm and dry Neurologic: PERRL, EOMI, accommodation nl, no face palsy, no dysarthria Psychiatric: A+Ox3, euthymic affect Genitourinary: no CVA tenderness Lymphatic: no lymphedema Results & Data Results & Data ([facility]) Vital Signs (Past 12 Hours) Vital Signs Temp Pulse Pulse Resp BP BP Pulse Ox 09/02/21 12:00 74 22 176/86 H 99 09/02/21 11:41 88 L 09/02/21 11:30 70 18 162/88 H 89 L 09/02/21 11:01 72 16 159/86 H 91 09/02/21 10:30 72 18 165/99 H 91 09/02/21 10:00 82 21 181/101 H 93 09/02/21 09:46 36.3 C L 75 20 185/93 H 92 Laboratory Results 09/02/21 09/02/21 09/02/21 Range/Units 13:20 13:20 10:20 WBC (4.8-10.8) K/uL RBC (4.2-5.4) M/uL Hgb (12.0-16.0) g/dL Hct (37-47) % MCV (80-100) fL MCH (25-34) pg MCHC (32-36) g/dL RDW Std Deviation (36.4-46.3) fL RDW Coeff of Popeye (11.5-14.5) % Plt Count (130-400) K/uL MPV (7.4-10.4) fL Immature Gran % (Auto) % Neut % (Auto) % Lymph % (Auto) % [place] % (Auto) % Eos % (Auto) % Baso % (Auto) % Neut # (Auto) (1.4-6.5) K/uL Lymph # (Auto) (1.2-3.4) K/uL [place] # (Auto) (0.11-0.59) K/uL Eos # (Auto) (0-0.5) K/uL Baso # (Auto) (0-0.2) K/uL Immature Gran # (Auto) (0.00-0.02) K/uL Sodium 142 (136-145) mmol/L Potassium 3.6 (3.5-5.1) mmol/L Chloride 105 (98-107) mmol/L Carbon Dioxide 32 (21-32) mmol/L Anion Gap 5.0 (3-11) BUN 19 H (7-18) mg/dl Creatinine 0.94 (0.6-1.2) mg/dl Est Cr Clr Drug Dosing Not Reportable Est GFR ( Amer) 64.1 ml/min Est GFR (Non-Af Amer) 55.3 ml/min BUN/Creatinine Ratio 20.1 H (10-20) Glucose 101 H (70-99) mg/dl Calcium 9.1 (8.5-10.1) mg/dl Magnesium 2.2 (1.8-2.4) mg/dl Total Bilirubin 0.5 (0.2-1) mg/dl AST 21 (15-37) U/L ALT 20 (12-78) U/L Alkaline Phosphatase 71 (45-117) U/L Troponin I < 0.015 (0-0.045) ng/ml NT-Pro-B Natriuret Pep 278 (0-1800) pg/ml Total Protein 6.8 (6.4-8.2) gm/dl Albumin 3.2 L (3.4-5.0) gm/dl Globulin 3.6 (2.5-4.0) gm/dl Albumin/Globulin Ratio 0.9 (0.9-2) Lipase 150 (73-393) U/L TSH 1.870 (0.300-4.500) uIu/ml COVID-19 Eval Order Covid19 at [facility] SARS-CoV-2 (PCR) Pending 09/02/21 Range/Units 10:20 WBC 4.55 L (4.8-10.8) K/uL RBC 4.77 (4.2-5.4) M/uL Hgb 16.3 H (12.0-16.0) g/dL Hct 48.4 H (37-47) % MCV 101.5 H (80-100) fL MCH 34.2 H (25-34) pg MCHC 33.7 (32-36) g/dL RDW Std Deviation 49.5 H (36.4-46.3) fL RDW Coeff of Popeye 13.3 (11.5-14.5) % Plt Count 170 (130-400) K/uL MPV 11.8 H (7.4-10.4) fL Immature Gran % (Auto) 0.2 % Neut % (Auto) 52.7 % Lymph % (Auto) 31.6 % [place] % (Auto) 9.2 % Eos % (Auto) 5.9 % Baso % (Auto) 0.4 % Neut # (Auto) 2.39 (1.4-6.5) K/uL Lymph # (Auto) 1.44 (1.2-3.4) K/uL [place] # (Auto) 0.42 (0.11-0.59) K/uL Eos # (Auto) 0.27 (0-0.5) K/uL Baso # (Auto) 0.02 (0-0.2) K/uL Immature Gran # (Auto) 0.01 (0.00-0.02) K/uL Sodium (136-145) mmol/L Potassium (3.5-5.1) mmol/L Chloride (98-107) mmol/L Carbon Dioxide (21-32) mmol/L Anion Gap (3-11) BUN (7-18) mg/dl Creatinine (0.6-1.2) mg/dl Est Cr Clr Drug Dosing Est GFR ( Amer) ml/min Est GFR (Non-Af Amer) ml/min BUN/Creatinine Ratio (10-20) Glucose (70-99) mg/dl Calcium (8.5-10.1) mg/dl Magnesium (1.8-2.4) mg/dl Total Bilirubin (0.2-1) mg/dl AST (15-37) U/L ALT (12-78) U/L Alkaline Phosphatase (45-117) U/L Troponin I (0-0.045) ng/ml NT-Pro-B Natriuret Pep (0-1800) pg/ml Total Protein (6.4-8.2) gm/dl Albumin (3.4-5.0) gm/dl Globulin (2.5-4.0) gm/dl Albumin/Globulin Ratio (0.9-2) Lipase (73-393) U/L TSH (0.300-4.500) uIu/ml COVID-19 Eval Order SARS-CoV-2 (PCR) Medications Administered CXR IMPRESSION: Chronic changes as described above. No acute process within the chest. CT Head Impression: No acute intracranial abnormality. Atrophy and microvascular ischemic changes. CTA head and neck IMPRESSION: 1. No significant stenosis, occlusion, or aneurysm within the [place] of [place]. 2. No significant stenosis, occlusion, or dissection identified within the carotid or vertebral arteries. CT chest w/o contrast IMPRESSION: 1. Mild diffuse bronchial wall thickening. This is likely chronic. 2. Mild interstitial thickening with scattered tree-in-bud nodular opacities. This favors a chronic infectious bronchiolitis. 3. No focal lung consolidations. 4. Additional findings as described above. Code Status & VTE Plan VTE Prophylaxis Plan VTE Prophylaxis will be ordered: Yes
[2021-09-02] MEDS ORDERED: hydrALAZINE HCL 20 MG/ML VIAL IV PRN (14:11)
--- NOTE | 2021-09-02 14:30 | CT Scan Report ---
CT chest diagnostic wo con CT DOSE: 335.93 mGy.cm HISTORY: dyspnea, hypoxia TECHNIQUE: Multiaxial CT images of the chest were performed without contrast. A dose lowering techni que was utilized adhering to the principles of ALARA. COMPARISON: Chest CT 02/04/2012. FINDINGS: No pneumothorax. No pleural effusions. Small fat-containing right-sided Bochdalek hernia, u nchanged. Mild diffuse bronchial wall thickening. However, the central airways are patent. Mild inter stitial thickening with scattered tree-in-bud nodular opacities seen within the lungs. Small wedge-sh aped focal density within the left upper lobe posteriorly on image 50. This favors an area of scarrin g. There are small scarlike densities within the lung apices. There is a 4 mm nodule within the right upper lobe on image 99. There is a 5 mm subpleural nodule within the right lower lobe on image 153. This remains unchanged. No new focal lung consolidations. No suspicious lytic are blastic osseous les ions. A 1.4 cm hypodense lesion within the left hepatic lobe. This favors a cyst. There is a partiall y calcified exophytic cyst at the splenic dome. The visualized adrenal glands are unremarkable. There is a small hiatus hernia. The heart is normal in size. No pericardial effusion. Normal caliber thora cic aorta. IMPRESSION: 1. Mild diffuse bronchial wall thickening. This is likely chronic. 2. Mild interstitial thickening with scattered tree-in-bud nodular opacities. This favors a chronic i nfectious bronchiolitis. 3. No focal lung consolidations. 4. Additional findings as described above. ACT 112: Negative or not required by law. Electronically signed by: Sudeep Everett M.D. 09/02/2021 2:29 PM
[2021-09-02] MEDS ORDERED: PANTOprazole 40 MG TAB PO PRN (15:59)
[2021-09-02 19:14] LABS: Appearance Urine Clear (Clear); Bilirubin Urine Negative (Negative); Blood Urine Negative (Negative); Color Urine Yellow; Glucose Urine UA Negative (Negative); Ketones Urine Trace (Negative); Leukocyte Esterase Urine Negative (Negative); Nitrite Urine Negative (Negative); Protein Urine Negative (Negative); Specific Gravity Urine > 1.045 (1.000-1.030); Urobilinogen Urine Negative (Negative)
[2021-09-02] MEDS ORDERED: MELATONIN 3 MG TAB PO PRN (20:07)
[2021-09-03] MEDS: LEVOTHYROXINE SODIUM 125 MCG TABLET PO SCH (06:26)
[2021-09-03] MEDS ORDERED: MECLIZINE 12.5 MG TAB PO PRN (07:19)
--- NOTE | 2021-09-03 07:49 | Electrocardiogram Report ---
Test Reason : Blood Pressure : / mmHG Vent. Rate : 082 BPM Atrial Rate : 082 BPM P-R Int : 206 ms QRS Dur : 076 ms QT Int : 394 ms P-R-T Axes : 073 016 049 degrees QTc Int : 460 ms Poor data quality, interpretation may be adversely affected Sinus rhythm with Premature atrial complexes with Aberrant conduction vs PVCs 1st degree AV block Nonspecific ST and T wave abnormality Abnormal ECG When compared with ECG of 09-MAY-2014 17:51, Aberrant conduction is now Present Confirmed by Jaya Us ([id number]) on 09/03/2021 7:49:21 AM Referred By: REFERRED SELF Confirmed By:Mariano Us
[2021-09-03] MEDS: allopurinoL 300 MG TAB PO SCH (08:04)
[2021-09-03] MEDS: ASPIRIN 81 MG ECTAB PO SCH (08:05)
[2021-09-03] MEDS: LOSARTAN/HCTZ 50/12.5MG TAB PO SCH (08:05)
[2021-09-03] MEDS: MULTIVITAMIN TAB PO SCH (08:06)
[2021-09-03 08:21] LABS: Hematocrit (blood only) 48.9 % (37-47); Hemoglobin 16.3 g/dL (12.0-16.0); Mean Corpuscular Hgb Conc 33.3 g/dL (32-36); Mean Corpuscular Volume 101.9 fL (80-100); Mean Platelet Volume 11.1 fL (7.4-10.4); Platelet Count 162 K/uL (130-400); RDW Coefficient of Variation 13.2 % (11.5-14.5); RDW Standard Deviation 49.2 fL (36.4-46.3); White Blood Count 4.84 K/uL (4.8-10.8)
[2021-09-03] MEDS ORDERED: ARTIFICIAL TEARS OP PRN (08:40)
[2021-09-03 08:41] LABS: Albumin Level 3.2 gm/dl (3.4-5.0); BUN Creatinine Ratio 18.2 (10-20); Calcium 8.6 mg/dl (8.5-10.1); Creatinine Clr Calc Pharmacy 40.9 ml/min; Est GFR (African American) 62.5 ml/min; Est GFR (Non-African American) 53.9 ml/min; Magnesium 2.3 mg/dl (1.8-2.4); Potassium 3.9 mmol/L (3.5-5.1)
[2021-09-03 08:43] LABS: Albumin Globulin Ratio 0.9 (0.9-2); Bilirubin,Total 0.5 mg/dl (0.2-1); Globulin 3.6 gm/dl (2.5-4.0); Phosphorus 3.5 mg/dl (2.5-4.9); Total Protein 6.8 gm/dl (6.4-8.2)
--- NOTE | 2021-09-03 09:18 | Hospitalist Progress Note ---
Date of Service September 03, 2021 Assessment & Plan (1) Vertigo: (2) Hypoxia: (3) Dyspnea on exertion: Plan: Patient presents to the ED due to vertigo/dizziness Says that she had some vertigo/dizziness, some years ago after head injury, rep orts this resolved with physical therapy However says that it's been now recurrent for past 2 days and today it has been worse and also somewhat unusual for her CT head, CTA head and neck in the ED unremarkable Possible BPPV, will order PT with Milan maneuvers Try to avoid Meclizine in her age group Possibly in the setting of hypertension Discussed with Dr. 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 Procalcitonin negative. Not likely infection. Troponin negative. Obtained CT chest without contrast 1. Mild diffuse bronchial wall thickening. This is likely chronic. 2. Mild interstitial thickening with scattered tree-in-bud nodular opacities. This favors a chronic infectious bronchiolitis. 3. No focal lung consolidations. 4. Additional findings as described above. Obtained echocardiogram Mild concentric LVH. LV wall motion is normal. LVEF 55 to 60%. RV is normal in size and function. Aortic valve sclerosis mild, without significant aortic valvular stenosis. Grade 1 diastolic dysfunction. Continue supplemental oxygen, as needed we will try to wean off, or obtain 2 step study before DC Patient also may need sleep study as outpatient Can try doxycycline Per record, history of asthma, patient denies any history of asthma, no wheezing on physical exam noted, therefore no steroid indicated at this time Continue to closely monitor (4) Gout: Plan: -Continue home allopurinol (5) Hypertension: Plan: -At home on HCTZ/losartan -Blood pressure elevated in the ED, however patient did not take her medications -Continue to closely follow, continue home medication -Currently BP controlled (6) Hypothyroidism: Plan: -Continue home levothyroxine (7) Polycythemia: Plan: -Hemoglobin elevated at baseline around 16, follows with hematology yearly routinely DVT ppx: SCDs Admission and Anticipated Discharge Date Admission Date: September 02, 2021 Subjective Patient seen in follow-up of vertigo, hypoxia, dyspnea on exertion, hypertension Currently patient is sitting up in bed, in no acute distress, reports to still have episode of vertigo when she turns to the left side Blood pressure well controlled at this time Continues to use oxygen No chest pain shortness of breath headache, abdominal pain Discussed with Dr. Hector, from neurology, will obtain MRI PT Milan maneuvers ordered, PT available on Saturday Review of Systems Review of Systems: All systems reviewed & are unremarkable except as noted in Subjective Physical Exam Physical Exam: Constitutional:J WD/WN, vitals as a nya Eyes: PERRL, EOMI, conju nctivae normal, an icteric sclerae ENMT: external ear and n ose normal, oropha rynx normal Respiratory: normal respiratory effort, lungs kike ar to auscultation (however pt on 2L of NC) Cardiovascular:J RRR, no murmur, no edema Chest (Breasts): Chest: normal insp ection of chest Gastrointestinal ( Abdomen): normal bowel sound s, soft, nontender Musculoskeletal: extremities motor strength 5/5 Skin: no rashes, warm an d dry Neurologic: PERRL, EOMI,no fac e palsy, no dysart hria, moves extrem ities Psychiatric: A+Ox3, euthymic af fect Genitourinary: no CVA tenderness Lymphatic: no lymphedema Results & Data Results & Data ([facility]) Vital Signs (Past 12 Hours) Vital Signs Temp Pulse Pulse Resp BP Pulse Ox 09/03/21 08:13 36.7 C 62 16 146/83 H 97 09/03/21 07:48 68 09/03/21 02:44 36.5 C 70 18 152/77 H 97 09/02/21 23:00 76 09/02/21 22:41 36.6 C 71 18 138/77 97 Laboratory Results 09/03/21 09/03/21 09/02/21 Range/Units 08:11 08:11 19:11 WBC 4.84 (4.8-10.8) K/uL RBC 4.80 (4.2-5.4) M/uL Hgb 16.3 H (12.0-16.0) g/dL Hct 48.9 H (37-47) % MCV 101.9 H (80-100) fL MCH 34.0 (25-34) pg MCHC 33.3 (32-36) g/dL RDW Std Deviation 49.2 H (36.4-46.3) fL RDW Coeff of Popeye 13.2 (11.5-14.5) % Plt Count 162 (130-400) K/uL MPV 11.1 H (7.4-10.4) fL Immature Gran % (Auto) % Neut % (Auto) % Lymph % (Auto) % [place] % (Auto) % Eos % (Auto) % Baso % (Auto) % Neut # (Auto) (1.4-6.5) K/uL Lymph # (Auto) (1.2-3.4) K/uL [place] # (Auto) (0.11-0.59) K/uL Eos # (Auto) (0-0.5) K/uL Baso # (Auto) (0-0.2) K/uL Immature Gran # (Auto) (0.00-0.02) K/uL Sodium 142 (136-145) mmol/L Potassium 3.9 (3.5-5.1) mmol/L Chloride 105 (98-107) mmol/L Carbon Dioxide 33 H (21-32) mmol/L Anion Gap 4.0 (3-11) BUN 18 (7-18) mg/dl Creatinine 0.96 (0.6-1.2) mg/dl Est Cr Clr Drug Dosing 40.9 Est GFR ( Amer) 62.5 ml/min Est GFR (Non-Af Amer) 53.9 ml/min BUN/Creatinine Ratio 18.2 (10-20) Glucose 100 H (70-99) mg/dl Calcium 8.6 (8.5-10.1) mg/dl Phosphorus 3.5 (2.5-4.9) mg/dl Magnesium 2.3 (1.8-2.4) mg/dl Total Bilirubin 0.5 (0.2-1) mg/dl AST 22 (15-37) U/L ALT 20 (12-78) U/L Alkaline Phosphatase 71 (45-117) U/L Troponin I (0-0.045) ng/ml NT-Pro-B Natriuret Pep (0-1800) pg/ml Total Protein 6.8 (6.4-8.2) gm/dl Albumin 3.2 L (3.4-5.0) gm/dl Globulin 3.6 (2.5-4.0) gm/dl Albumin/Globulin Ratio 0.9 (0.9-2) Lipase (73-393) U/L Procalcitonin (0-0.5) ng/ml TSH (0.300-4.500) uIu/ml Urine Color Yellow Urine Appearance Clear (Clear) Urine pH 6.0 (4.5-7.5) Ur Specific Worth > 1.045 H (1.000-1.030) Urine Protein Negative (Negative) Urine Glucose (UA) Negative (Negative) Urine Ketones Trace H (Negative) Urine Blood Negative (Negative) Urine Nitrite Negative (Negative) Urine Bilirubin Negative (Negative) Urine Urobilinogen Negative (Negative) Ur Leukocyte Esterase Negative (Negative) COVID-19 Eval Order SARS-CoV-2 (PCR) (Negative) 09/02/21 09/02/21 09/02/21 Range/Units 15:16 13:20 13:20 WBC (4.8-10.8) K/uL RBC (4.2-5.4) M/uL Hgb (12.0-16.0) g/dL Hct (37-47) % MCV (80-100) fL MCH (25-34) pg MCHC (32-36) g/dL RDW Std Deviation (36.4-46.3) fL RDW Coeff of Popeye (11.5-14.5) % Plt Count (130-400) K/uL MPV (7.4-10.4) fL Immature Gran % (Auto) % Neut % (Auto) % Lymph % (Auto) % [place] % (Auto) % Eos % (Auto) % Baso % (Auto) % Neut # (Auto) (1.4-6.5) K/uL Lymph # (Auto) (1.2-3.4) K/uL [place] # (Auto) (0.11-0.59) K/uL Eos # (Auto) (0-0.5) K/uL Baso # (Auto) (0-0.2) K/uL Immature Gran # (Auto) (0.00-0.02) K/uL Sodium (136-145) mmol/L Potassium (3.5-5.1) mmol/L Chloride (98-107) mmol/L Carbon Dioxide (21-32) mmol/L Anion Gap (3-11) BUN (7-18) mg/dl Creatinine (0.6-1.2) mg/dl Est Cr Clr Drug Dosing Est GFR ( Amer) ml/min Est GFR (Non-Af Amer) ml/min BUN/Creatinine Ratio (10-20) Glucose (70-99) mg/dl Calcium (8.5-10.1) mg/dl Phosphorus (2.5-4.9) mg/dl Magnesium (1.8-2.4) mg/dl Total Bilirubin (0.2-1) mg/dl AST (15-37) U/L ALT (12-78) U/L Alkaline Phosphatase (45-117) U/L Troponin I (0-0.045) ng/ml NT-Pro-B Natriuret Pep (0-1800) pg/ml Total Protein (6.4-8.2) gm/dl Albumin (3.4-5.0) gm/dl Globulin (2.5-4.0) gm/dl Albumin/Globulin Ratio (0.9-2) Lipase (73-393) U/L Procalcitonin < 0.05 (0-0.5) ng/ml TSH (0.300-4.500) uIu/ml Urine Color Urine Appearance (Clear) Urine pH (4.5-7.5) Ur Specific [place] (1.000-1.030) Urine Protein (Negative) Urine Glucose (UA) (Negative) Urine Ketones (Negative) Urine Blood (Negative) Urine Nitrite (Negative) Urine Bilirubin (Negative) Urine Urobilinogen (Negative) Ur Leukocyte Esterase (Negative) COVID-19 Eval Order Covid19 at [facility] SARS-CoV-2 (PCR) NEGATIVE (Negative) 09/02/21 09/02/21 Range/Units 10:20 10:20 WBC 4.55 L (4.8-10.8) K/uL RBC 4.77 (4.2-5.4) M/uL Hgb 16.3 H (12.0-16.0) g/dL Hct 48.4 H (37-47) % MCV 101.5 H (80-100) fL MCH 34.2 H (25-34) pg MCHC 33.7 (32-36) g/dL RDW Std Deviation 49.5 H (36.4-46.3) fL RDW Coeff of Popeye 13.3 (11.5-14.5) % Plt Count 170 (130-400) K/uL MPV 11.8 H (7.4-10.4) fL Immature Gran % (Auto) 0.2 % Neut % (Auto) 52.7 % Lymph % (Auto) 31.6 % [place] % (Auto) 9.2 % Eos % (Auto) 5.9 % Baso % (Auto) 0.4 % Neut # (Auto) 2.39 (1.4-6.5) K/uL Lymph # (Auto) 1.44 (1.2-3.4) K/uL [place] # (Auto) 0.42 (0.11-0.59) K/uL Eos # (Auto) 0.27 (0-0.5) K/uL Baso # (Auto) 0.02 (0-0.2) K/uL Immature Gran # (Auto) 0.01 (0.00-0.02) K/uL Sodium 142 (136-145) mmol/L Potassium 3.6 (3.5-5.1) mmol/L Chloride 105 (98-107) mmol/L Carbon Dioxide 32 (21-32) mmol/L Anion Gap 5.0 (3-11) BUN 19 H (7-18) mg/dl Creatinine 0.94 (0.6-1.2) mg/dl Est Cr Clr Drug Dosing Not Reportable Est GFR ( Amer) 64.1 ml/min Est GFR (Non-Af Amer) 55.3 ml/min BUN/Creatinine Ratio 20.1 H (10-20) Glucose 101 H (70-99) mg/dl Calcium 9.1 (8.5-10.1) mg/dl Phosphorus (2.5-4.9) mg/dl Magnesium 2.2 (1.8-2.4) mg/dl Total Bilirubin 0.5 (0.2-1) mg/dl AST 21 (15-37) U/L ALT 20 (12-78) U/L Alkaline Phosphatase 71 (45-117) U/L Troponin I < 0.015 (0-0.045) ng/ml NT-Pro-B Natriuret Pep 278 (0-1800) pg/ml Total Protein 6.8 (6.4-8.2) gm/dl Albumin 3.2 L (3.4-5.0) gm/dl Globulin 3.6 (2.5-4.0) gm/dl Albumin/Globulin Ratio 0.9 (0.9-2) Lipase 150 (73-393) U/L Procalcitonin (0-0.5) ng/ml TSH 1.870 (0.300-4.500) uIu/ml Urine Color Urine Appearance (Clear) Urine pH (4.5-7.5) Ur Specific Worth (1.000-1.030) Urine Protein (Negative) Urine Glucose (UA) (Negative) Urine Ketones (Negative) Urine Blood (Negative) Urine Nitrite (Negative) Urine Bilirubin (Negative) Urine Urobilinogen (Negative) Ur Leukocyte Esterase (Negative) COVID-19 Eval Order SARS-CoV-2 (PCR) (Negative) Medications Administered Current Inpatient Medications Acetaminophen (Acetaminophen 325 Mg Tab) 650 mg PO Q4H PRN PRN Reason: Pain or Fever Stop: 10/02/21 13:15 Allopurinol ([facility]ol 300 Mg Tab) [facility] Stop: 10/03/21 08:59 Last Admin: 09/03/21 08:04 Dose: 150 mg Documented by: Artificial Tears (Artificial Tears) 1 drops OP TID PRN PRN Reason: dry eyes Stop: 10/03/21 08:39 Aspirin (Aspirin 81 Mg Ectab) [facility] Stop: 10/03/21 08:59 Last Admin: 09/03/21 08:05 Dose: 81 mg Documented by: Cetirizine HCl (Cetirizine Hcl 10 Mg Tablet) 10 mg PO QAM PRN PRN Reason: allergy symptoms Stop: 10/02/21 15:58 HCTZ/Losartan Potassium (Losartan/Hctz 50/12.5mg Tab) [facility] Stop: 10/03/21 08:59 Last Admin: 09/03/21 08:05 Dose: 1 tab Documented by: Hydralazine HCl (Hydralazine Hcl 20 Mg/Ml Vial) 2.5 mg IV Q4H PRN PRN Reason: SBP>165 Stop: 10/02/21 14:10 Levothyroxine Sodium (Levothyroxine Sodium 125 Mcg Tablet) [facility] Stop: 10/03/21 06:29 Last Admin: 09/03/21 06:26 Dose: 125 mcg Documented by: Meclizine HCl (Meclizine 12.5 Mg Tab) 12.5 mg PO Q4H PRN PRN Reason: dizziness, vertigo Stop: 10/03/21 07:18 Melatonin (Melatonin 3 Mg Tab) 3 mg PO HS PRN PRN Reason: Sleep Stop: 10/02/21 20:06 Multivitamins (Multivitamin Tab) 1 tab PO [facility] Stop: 10/03/21 08:59 Last Admin: 09/03/21 08:06 Dose: 1 tab Documented by: Pantoprazole Sodium (Pantoprazole 40 Mg Tab) 40 mg PO DAILY PRN PRN Reason: GERD Stop: 10/02/21 15:58
[2021-09-03] MEDS: DOXYCYCLINE HYCLATE 100 MG CAP PO SCH ×2 (10:57→20:07)
[2021-09-03] MEDS: CETIRIZINE HCL 10 MG TABLET PO PRN (11:46)
[2021-09-03] MEDS ORDERED: PROMETHAZINE HCL 6.25 MG in SODIUM CHLORIDE 0.9% 50 ML IV PRN (12:00)
[2021-09-03] MEDS ORDERED: GADOBUTROL 30ML VIAL IV ONE (16:02)
--- NOTE | 2021-09-03 16:22 | Magnetic Resonance Report ---
MR brain IAC wo/w con CLINICAL HISTORY: poss. CVA, vertigo TECHNIQUE: Multiplanar and multisequence MR images of the brain were obtained prior to and following administration of gadolinium contrast. Comparison: None available at the time of this dictation. FINDINGS: No abnormal restricted diffusion is identified. Foci of T2 and FLAIR hyperintensity are noted in the paraventricular areas consistent with chronic small vessel ischemic disease. Ex vacuo ventriculomegal y and sulcal enlargement is noted compatible with diffuse encephalomalacia. There is no evidence of a cute intraparenchymal hemorrhage. No extra axial fluid collections are seen. There are no masses, mas s effect, or midline shift. No abnormal enhancement is seen. The corpus callosum, pituitary gland, a nd cerebellar tonsils appear grossly unremarkable. Flow voids of the major intracranial arterial vessels are identified. The imaged portions of the para nasal sinuses, mastoid air cells, and orbits are unremarkable. The bilateral vestibular cochlear nerv es, inferior, and external auditory canals are unremarkable. IMPRESSION: No acute abnormalities. In particular, no evidence of cerebrovascular accident or posterior fossa christianne or. ACT 112: Negative or not required by law. Electronically signed by: Alton Gordon M.D. 09/03/2021 4:21 PM
[2021-09-04] MEDS: LEVOTHYROXINE SODIUM 125 MCG TABLET PO SCH (06:29)
[2021-09-04] MEDS: LOSARTAN/HCTZ 50/12.5MG TAB PO SCH (08:47)
[2021-09-04] MEDS: MULTIVITAMIN TAB PO SCH (08:47)
[2021-09-04] MEDS: allopurinoL 300 MG TAB PO SCH (08:48)
[2021-09-04] MEDS: ASPIRIN 81 MG ECTAB PO SCH (08:48)
[2021-09-04] MEDS: CETIRIZINE HCL 10 MG TABLET PO PRN (08:48)
[2021-09-04] MEDS: DOXYCYCLINE HYCLATE 100 MG CAP PO SCH (08:49)
--- NOTE | 2021-09-04 11:09 | Neurology Consultation ---
Date of Consultation September 04, 2021 Assessment & Plan (1) Vertigo: 1. MRI no stroke or lesions 2. TTE no ASD 3. PT for Milan maneuver and discharge needs. 4. meclizine should be limited in the age patient 5. hypoxia and HTN to be addressed by primary team. 6. if needed can be referred to out patient PT for further management Supervising Physician Co-Signing Physician Notes I have seen and discussed above patient with Dr Benjamin Hector, neurology Clearly is currently asymptomatic in terms of the positional vertigo that prompted hospitalization which was uniformly with head rotation to the left and was quite similar to her prior episode of posttraumatic vertigo she had probably 10 years ago Her diagnostic imaging studies including MRI of the brain with and without contrast including special views of the internal acoustic beta, CT angiographic studies etc. are all normal and nothing about this suggest the possibility of vascular disease and now with a response to probable Milan maneuver I think the diagnosis is benign positional vertigo and avoid the use of meclizine which often is not very effective in this entity and benzodiazepines which at her age would not be a salcido choice for either Since she is improved neurology is going to sign off the case but would be happy to reassess her in some time in the future should other neurologic issues emerge Her other medical conditions are going to have to be managed at home and she may be a candidate for nocturnal oxygen or oxygen when she is exercising based on what I am can glean from the respiratory therapy valuation today From a neurologic point of view she can be discharged but again there may be other medical issues particularly the hypoxemia that need addressed before longer than part of the hospital Benjamin Hector MD History of Present Illness Reason for Consultation: dizziness/vertigo Requesting Physician: Rony Boyle MD Attending Physician: Rony Boyle MD History of Present Illness Idalia is an 85 year old female with PMH- HTN, gout, depression, anxiety, osteoporosis, CKD IIIa, urinary incontinence, history of elevated hemoglobin since 2017 (routinely follows with hematology yearly), who presented to [facility] ED 09/03/2021 with vertigo and elevated blood pressure. She has a history of vertigo several years ago after head injury which then resolved with PT therapy. She did not take her blood pressure medications prior to arrival and had a very high blood pressure at home and wanted to be evaluated in the ED. She needed help by her to get her out of bed and she had to hold onto furniture.She had one episode of diarrhea about 2 days ago. She was found to be hypoxic down to 88%. And reported that she has been having dyspnea on exertion for some time. The stairs at home makes her short of breath. Allergies Allergy/AdvReac Type Severity Reaction Status Date / Time Sulfa (Sulfonamide Allergy Severe TONGUE Verified 09/02/21 10:39 Antibiotics) SWELLING JORGE Inhibitors AdvReac cough Verified 09/02/21 10:39 Home Medications Medication Instructions Recorded Confirmed Type allopurinol 300 mg tablet 150 mg PO QAM tab 06/30/19 09/02/21 History diphenhydramine HCl 25 mg tablet 25 mg PO HS PRN tab 06/30/19 09/02/21 History omeprazole 20 mg capsule,delayed 20 mg PO DAILY PRN #30 cap 07/08/19 09/02/21 Rx release ascorbic acid (vitamin C) 500 mg 500 mg PO QAM 09/02/21 09/02/21 History capsule aspirin 81 mg tablet,delayed 81 mg PO QAM 09/02/21 09/02/21 History release (Adult Low Dose Aspirin) calcium carbonate 600 mg(1,500 1 tab PO QAM 09/02/21 09/02/21 History mg)-vitamin D3 800 unit chewable tablet (Caltrate 600 plus D) cetirizine 10 mg capsule (Zyrtec) 10 mg PO QAM PRN 09/02/21 09/02/21 History levothyroxine 125 mcg tablet 125 mcg PO QAM 09/02/21 09/02/21 History losartan 100 1 tab PO QAM 09/02/21 09/02/21 History mg-hydrochlorothiazide 25 mg tablet multivitamin 1 tab PO QAM 09/02/21 09/02/21 History omega-3 fatty acids 1,000 mg 1,000 mg PO QAM 09/02/21 09/02/21 History capsule (Fish Oil Concentrate) sour pardo extract 1,000 mg 1,000 mg PO UD PRN 09/02/21 09/02/21 History capsule (Tart Pardo Extract) Patient History Medical History Actinic keratosis Allergic rhinitis Anxiety Asthma Depression Gastroesophageal reflux disease Gout History of basal cell carcinoma Hypertension Hypothyroidism Idiopathic urticaria Impaired fasting glucose Osteoporosis Personal history of malignant melanoma of skin Polycythemia Seborrheic keratosis Surgical History H/O colonoscopy History of dilatation and curettage History of lumpectomy of right breast S/P tonsillectomy Status post Mohs micrographic surgery for basal cell carcinoma (BCC) Status post partial thyroidectomy Family History Aunt Breast cancer Mother Myocardial infarction Father Myocardial infarction Denies family history of Ovarian cancer Prostate cancer Colorectal cancer Social History Smoking Status: Never smoker Age Started Using Tobacco: 16; Age Quit Using Tobacco: 26; Hx Alcohol Use: Yes Alcohol type: wine Alcohol Intake Frequency Comment: 2-3 glasses of homemade wine per day. 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 Other Information That Helps Us Care for You: No Feels Safe at Home: Yes Dental Care, Regularly: Yes Physical Activity Frequency: Does not Exercise Assistive Devices: Walker Review of Systems Review of Systems: Patient denies any recent head injury visual issues facial numbness or tingling weakness and her vertigo is very brief duration occurs exclusively with head movement to the left and resolves after several minutes of time often in a shorter interval Otherwise really been no systemic complaints of note and no clear-cut cardiovascular pulmonary gastrointestinal genitourinary musculoskeletal or dermatologic issues She does have a 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 Reflexes 1+ symmetrical toes are downgoing no Nadeen signs are seen. Strength testing is quite normal and sensory examination is intact to vibration light touch and proprioception Vital signs indicate a blood pressure 139/79 pulse is 71 respirations are 18 temperature is 36 and O2 saturations are 96 on nasal cannula at 1 L/min I was present when respiratory therapy was evaluating her in she did desaturate down to the upper 80s with exercise. Results & Data ([facility]) Vital Signs (Past 12 Hours) Vital Signs Temp Pulse Pulse Resp BP Pulse Ox 09/04/21 10:47 92 09/04/21 08:40 65 09/04/21 07:56 36.7 C 80 18 163/100 H 91 09/04/21 03:30 36.7 C 69 18 136/82 93 09/03/21 23:55 78 Laboratory Results no labs to display Diagnostic Findings TTE- 55-60% EF no ASD CT head-No acute intracranial abnormality. Atrophy and microvascular ischemic changes CTA head/neck-No significant stenosis, occlusion, or aneurysm within the upper [place]. No significant stenosis, occlusion, or dissection identified within the carotid or vertebral arteries. CXR-The cardiac silhouette remains top normal in size. A right basilar linear density consistent with scarring or subsegmental atelectasis. This remains unchanged. Hazy appearance to the medial lung bases likely represents prominent mediastinal fat. This is also stable. No new focal lung consolidations to suggest pneumonia. No evidence for pulmonary edema. No pleural effusions. No pneumothorax. Old, healed left-sided rib fractures. CT chest-Mild diffuse bronchial wall thickening. This is likely chronic. Mild interstitial thickening with scattered tree-in-bud nodular opacities. This favors a chronic infectious bronchiolitis. No focal lung consolidations. MRI IAC-No acute abnormalities. In particular, no evidence of cerebrovascular accident or posterior fossa tumor.
--- NOTE | 2021-09-04 13:55 | Hospitalist Progress Note ---
Date of Service September 04, 2021 Assessment & Plan (1) Vertigo: (2) Hypoxia: (3) Dyspnea on exertion: Plan: Patient presents to the ED due to vertigo/dizziness Says that she had some vertigo/dizziness, some years ago after head injury, rep orts this resolved with physical therapy However says that it's been now recurrent for past 2 days and today it has been worse and also somewhat unusual for her CT head, CTA head and neck in the ED unremarkable Possible BPPV, will order PT with [facility] Try to avoid Meclizine in her age group Possibly in the setting of hypertension Discussed with Dr. Hector, from neurology, and recommend MRI IMPRESSION: No acute abnormalities. In particular, no evidence of cerebrovascular accident or posterior fossa tumor. 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 Procalcitonin negative. Not likely infection. Troponin negative. Obtained CT chest without contrast 1. Mild diffuse bronchial wall thickening. This is likely chronic. 2. Mild interstitial thickening with scattered tree-in-bud nodular opacities. This favors a chronic infectious bronchiolitis. 3. No focal lung consolidations. 4. Additional findings as described above. Obtained echocardiogram Mild concentric LVH. LV wall motion is normal. LVEF 55 to 60%. RV is normal in size and function. Aortic valve sclerosis mild, without significant aortic valvular stenosis. Grade 1 diastolic dysfunction. Continue supplemental oxygen, as needed we will try to wean off, or obtain 2 step study before DC Patient also may need sleep study as outpatient Can try doxycycline Per record, history of asthma, patient denies any history of asthma, no wheezing on physical exam noted, therefore no steroid indicated at this time Continue to closely monitor 09/04 -2 step study obtained, patient needs 2 L with ambulation May need pulmonary evaluation as outpatient (4) Gout: Plan: -Continue home allopurinol (5) Hypertension: Plan: -At home on HCTZ/losartan -Blood pressure elevated in the ED, however patient did not take her medications -Continue to closely follow, continue home medication -Currently BP controlled (6) Hypothyroidism: Plan: -Continue home levothyroxine (7) Polycythemia: Plan: -Hemoglobin elevated at baseline around 16, follows with hematology yearly routinely DVT ppx: SCDs Admission and Anticipated Discharge Date Admission Date: September 02, 2021 Subjective Patient seen in follow-up of vertigo, hypoxia, dyspnea on exertion, hypertension Currently patient is sitting up in bed, in no acute distress, reports to still have episode of vertigo when she turns to the left side However she does feel better now, even to the point that she thinks she could go home She worked with PT today MRI ordered yesterday, no stroke Blood pressure well controlled at this time Continues to use oxygen No chest pain shortness of breath headache, abdominal pain 2 step ordered, patient will need 2 L with ambulation Review of Systems Review of Systems: All systems reviewed & are unremarkable except as noted in Subjective Physical Exam Physical Exam: Constitutional:J WD/WN, vitals as a nya Eyes: PERRL, EOMI, conju nctivae normal, an icteric sclerae ENMT: external ear and n ose normal, oropha rynx normal Respiratory: normal respiratory effort, lungs kike ar to auscultation (however pt on 2L of NC) Cardiovascular:J RRR, no murmur, no edema Chest (Breasts): Chest: normal insp ection of chest Gastrointestinal ( Abdomen): normal bowel sound s, soft, nontender Musculoskeletal: extremities motor strength 5/5 Skin: no rashes, warm an d dry Neurologic: PERRL, EOMI,no fac e palsy, no dysart hria, moves extrem ities Psychiatric: A+Ox3, euthymic af fect Genitourinary: no CVA tenderness Lymphatic: no lymphedema Results & Data Results & Data ([facility]) Vital Signs (Past 12 Hours) Vital Signs Temp Pulse Pulse Resp BP Pulse Ox 09/04/21 11:11 36.8 C 71 18 139/79 96 09/04/21 10:47 92 09/04/21 08:40 65 09/04/21 07:56 36.7 C 80 18 163/100 H 91 09/04/21 03:30 36.7 C 69 18 136/82 93 Medications Administered Current Inpatient Medications Acetaminophen (Acetaminophen 325 Mg Tab) 650 mg PO Q4H PRN PRN Reason: Pain or Fever Stop: 10/02/21 13:15 Allopurinol (Allopurinol 300 Mg Tab) 150 mg PO QAM [facility] Stop: 10/03/21 08:59 Last Admin: 09/04/21 08:48 Dose: 150 mg Documented by: Artificial Tears (Artificial Tears) 1 drops OP TID PRN PRN Reason: dry eyes Stop: 10/03/21 08:39 Aspirin (Aspirin 81 Mg Ectab) 81 mg PO QAM [facility] Stop: 10/03/21 08:59 Last Admin: 09/04/21 08:48 Dose: 81 mg Documented by: Cetirizine HCl (Cetirizine Hcl 10 Mg Tablet) 10 mg PO QAM PRN PRN Reason: allergy symptoms Stop: 10/02/21 15:58 Last Admin: 09/04/21 08:48 Dose: 10 mg Documented by: Doxycycline Hyclate (Doxycycline Hyclate 100 Mg Cap) 100 mg PO BID [facility] Stop: 09/05/21 09:59 Last Admin: 09/04/21 08:49 Dose: 100 mg Documented by: HCTZ/Losartan Potassium (Losartan/Hctz 50/12.5mg Tab) 1 tab PO QAGREAT [facility] Stop: 10/03/21 08:59 Last Admin: 09/04/21 08:47 Dose: 1 tab Documented by: Hydralazine HCl (Hydralazine Hcl 20 Mg/Ml Vial) 2.5 mg IV Q4H PRN PRN Reason: SBP>165 Stop: 10/02/21 14:10 Promethazine HCl 6.25 mg/ (Sodium Chloride) 50.25 mls @ 201 mls/hr IV Q6H PRN PRN Reason: nausea Stop: 10/03/21 11:59 Doxycycline Hyclate 100 mg/ (Dextrose) 110 mls @ 50 mls/hr IV Q12H [facility] Stop: 09/06/21 13:44 Levothyroxine Sodium (Levothyroxine Sodium 125 Mcg Tablet) 125 mcg PO DAILYBB [facility] Stop: 10/03/21 06:29 Last Admin: 09/04/21 06:29 Dose: 125 mcg Documented by: Meclizine HCl (Meclizine 12.5 Mg Tab) 12.5 mg PO Q4H PRN PRN Reason: dizziness, vertigo Stop: 10/03/21 07:18 Melatonin (Melatonin 3 Mg Tab) 3 mg PO HS PRN PRN Reason: Sleep Stop: 10/02/21 20:06 Multivitamins (Multivitamin Tab) 1 tab PO QAM [facility] Stop: 10/03/21 08:59 Last Admin: 09/04/21 08:47 Dose: 1 tab Documented by: Pantoprazole Sodium (Pantoprazole 40 Mg Tab) 40 mg PO DAILY PRN PRN Reason: GERD Stop: 10/02/21 15:58 (1) Hypertension Hypertension type: primary hypertension Qualified Code(s): I10 - Essential (primary) hypertension
[2021-09-04] MEDS: DOXYCYCLINE HYCLATE 100 MG in DEXTROSE 5% 100 ML IV SCH (21:47)
[2021-09-05] MEDS: LEVOTHYROXINE SODIUM 125 MCG TABLET PO SCH (06:44)
--- NOTE | 2021-09-05 06:55 | Hospitalist Progress Note ---
Date of Service September 05, 2021 Assessment & Plan (1) Vertigo: (2) Hypoxia: (3) Dyspnea on exertion: Plan: Patient presents to the ED due to vertigo/dizziness Says that she had some vertigo/dizziness, some years ago after head injury, rep orts this resolved with physical therapy However says that it's been now recurrent for past 2 days and today it has been worse and also somewhat unusual for her CT head, CTA head and neck in the ED unremarkable Possible BPPV, will order PT with [facility] Try to avoid Meclizine in her age group Possibly in the setting of hypertension Discussed with Dr. Hector, from neurology, and recommend MRI IMPRESSION: No acute abnormalities. In particular, no evidence of cerebrovascular accident or posterior fossa tumor. 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 Procalcitonin negative. Not likely infection. Troponin negative. Obtained CT chest without contrast 1. Mild diffuse bronchial wall thickening. This is likely chronic. 2. Mild interstitial thickening with scattered tree-in-bud nodular opacities. This favors a chronic infectious bronchiolitis. 3. No focal lung consolidations. 4. Additional findings as described above. Obtained echocardiogram Mild concentric LVH. LV wall motion is normal. LVEF 55 to 60%. RV is normal in size and function. Aortic valve sclerosis mild, without significant aortic valvular stenosis. Grade 1 diastolic dysfunction. Continue supplemental oxygen, as needed we will try to wean off, or obtain 2 step study before DC Patient also may need sleep study as outpatient Can try doxycycline Per record, history of asthma, patient denies any history of asthma, no wheezing on physical exam noted, therefore no steroid indicated at this time Continue to closely monitor 09/04 -2 step study obtained, patient needs 2 L with ambulation May need pulmonary evaluation as outpatient (4) Gout: Plan: -Continue home allopurinol (5) Hypertension: Plan: -At home on HCTZ/losartan -Blood pressure elevated in the ED, however patient did not take her medications -Continue to closely follow, continue home medication -Currently BP controlled (6) Hypothyroidism: Plan: -Continue home levothyroxine (7) Polycythemia: Plan: -Hemoglobin elevated at baseline around 16, follows with hematology yearly routinely DVT ppx: SCDs Admission and Anticipated Discharge Date Admission Date: September 02, 2021 Subjective Patient seen in follow-up of vertigo, hypoxia, dyspnea on exertion, hypertension Currently patient is laying in bed, in no acute distress She feels better now, and thinks she could go home She worked with PT yesterday Blood pressure well controlled at this time Continues to use oxygen No chest pain shortness of breath headache, abdominal pain 2 step ordered, patient will need 2 L with ambulation Review of Systems Review of Systems: All systems reviewed & are unremarkable except as noted in Subjective Physical Exam Physical Exam: Constitutional:J WD/WN, vitals as a nya Eyes: PERRL, EOMI, conju nctivae normal, an icteric sclerae ENMT: external ear and n ose normal, oropha rynx normal Respiratory: normal respiratory effort, lungs kike ar to auscultation (however pt on 2L of NC) Cardiovascular:J RRR, no murmur, no edema Chest (Breasts): Chest: normal insp ection of chest Gastrointestinal ( Abdomen): normal bowel sound s, soft, nontender Musculoskeletal: extremities motor strength 5/5 Skin: no rashes, warm an d dry Neurologic: PERRL, EOMI,no fac e palsy, no dysart hria, moves extrem ities Psychiatric: A+Ox3, euthymic af fect Genitourinary: no CVA tenderness Lymphatic: no lymphedema Results & Data Results & Data ([facility]) Vital Signs (Past 12 Hours) Vital Signs Temp Pulse Resp BP Pulse Ox 09/05/21 00:18 36.8 C 70 20 137/68 99 Medications Administered Current Inpatient Medications Acetaminophen (Acetaminophen 325 Mg Tab) 650 mg PO Q4H PRN PRN Reason: Pain or Fever Stop: 10/02/21 13:15 Allopurinol (Allopurinol 300 Mg Tab) 150 mg PO QAM [facility] Stop: 10/03/21 08:59 Last Admin: 09/04/21 08:48 Dose: 150 mg Documented by: Artificial Tears (Artificial Tears) 1 drops OP TID PRN PRN Reason: dry eyes Stop: 10/03/21 08:39 Aspirin (Aspirin 81 Mg Ectab) 81 mg PO QAM [facility] Stop: 10/03/21 08:59 Last Admin: 09/04/21 08:48 Dose: 81 mg Documented by: Cetirizine HCl (Cetirizine Hcl 10 Mg Tablet) 10 mg PO QAM PRN PRN Reason: allergy symptoms Stop: 10/02/21 15:58 Last Admin: 09/04/21 08:48 Dose: 10 mg Documented by: HCTZ/Losartan Potassium (Losartan/Hctz 50/12.5mg Tab) 1 tab PO QAM [facility] Stop: 10/03/21 08:59 Last Admin: 09/04/21 08:47 Dose: 1 tab Documented by: Hydralazine HCl (Hydralazine Hcl 20 Mg/Ml Vial) 2.5 mg IV Q4H PRN PRN Reason: SBP>165 Stop: 10/02/21 14:10 Promethazine HCl 6.25 mg/ (Sodium Chloride) 50.25 mls @ 201 mls/hr IV Q6H PRN PRN Reason: nausea Stop: 10/03/21 11:59 Doxycycline Hyclate 100 mg/ (Dextrose) 110 mls @ 50 mls/hr IV Q12 [facility] Stop: 09/06/21 20:59 Last Admin: 09/04/21 21:47 Dose: Not Given Documented by: Levothyroxine Sodium (Levothyroxine Sodium 125 Mcg Tablet) 125 mcg PO DAILYBB [facility] Stop: 10/03/21 06:29 Last Admin: 09/05/21 06:44 Dose: 125 mcg Documented by: Meclizine HCl (Meclizine 12.5 Mg Tab) 12.5 mg PO Q4H PRN PRN Reason: dizziness, vertigo Stop: 10/03/21 07:18 Melatonin (Melatonin 3 Mg Tab) 3 mg PO HS PRN PRN Reason: Sleep Stop: 10/02/21 20:06 [facility]ivitamins ([facility]itamin Tab) [facility] Stop: 10/03/21 08:59 Last Admin: 09/04/21 08:47 Dose: 1 tab Documented by: Pantoprazole Sodium (Pantoprazole 40 Mg Tab) 40 mg PO DAILY PRN PRN Reason: GERD Stop: 10/02/21 15:58 (1) Hypertension Hypertension type: primary hypertension Qualified Code(s): I10 - Essential (primary) hypertension
--- NOTE | 2021-09-05 06:59 | Discharge Summary ---
Date of Service September 05, 2021 Admission HPI Per Admitting Provider 85-year-old female with history of hypertension, gout, depression anxiety, osteoporosis, CKD stage IIIa, urinary incontinence, history of elevated hemoglobin since 2017 (routinely follows with hematology yearly), who presents with vertigo and elevated blood pressure. Patient reported in ED that she had history of vertigo several years ago after head injury which then resolved with PT therapy. She also did not take her blood pressure medications today and noted to have very high blood pressure at home (patient reports systolic blood pressure about 170 which is reportedly unusual for her), and therefore wanted to be evaluated in the ED. In addition she says that she was having vertigo for past 2 days however this morning it was the worst. She needed help of her to get her out of bed and she had to hold onto furniture. During this episode however she denies having any chest pain, palpitations, dizziness, lightheadedness, shortness of breath feeling that she would faint. She also denied any abdominal pain, nausea vomiting. Denies any headache. Says she had one episode of diarrhea about 2 days ago. In ED she was found to be hypoxic down to 88%. And reported that she has been having dyspnea on exertion for some time. Patient says that since Covid pandemic she has not been out as much, however they do have stairs at home that she has been taking and that makes her short of breath. 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 Chest x-ray was unremarkable, CT head, CTA head and neck also unremarkable. Blood pressure was elevated in the ED, and they restarted her home medications. No nystagmus noted in the ED. After discussing further with ED provider, there was concern that patient has progressive dyspnea on exertion, possible cardiac etiology and inpatient admission was recommended. Also discussed obtaining CT chest without contrast to further evaluate hypoxia. Covid was negative in ED. Admission Exam Per Admitting Provider Constitutional: WD/WN, vitals as above Eyes: PERRL, conjunctivae normal, anicteric sclerae ENMT: external ear and nose normal, oropharynx normal Respiratory: normal respiratory effort, lungs clear to auscultation (however pt on 2L of NC) Cardiovascular: RRR, no murmur, no edema Chest (Breasts): Chest: normal inspection of chest Gastrointestinal (Abdomen): normal bowel sounds, soft, nontender, no hepatosplenomegaly Musculoskeletal: no cyanosis or clubbing, extremities motor strength 5/5 Skin: no rashes, warm and dry Neurologic: PERRL, EOMI, accommodation nl, no face palsy, no dysarthria Psychiatric: A+Ox3, euthymic affect Genitourinary: no CVA tenderness Lymphatic: no lymphedema Principal Diagnosis vertigo/ BPPV hypoxia Discharge Exam Constitutional: WD/WN, vitals as above Eyes: PERRL, EOMI, conjunctivae normal, anicteric sclerae ENMT: external ear and nose normal, oropharynx normal Respiratory: normal respiratory effort, lungs clear to auscultation (however pt on 2L of NC) Cardiovascular: RRR, no murmur, no edema Chest (Breasts): Chest: normal inspection of chest Gastrointestinal (Abdomen): normal bowel sounds, soft, nontender Musculoskeletal: extremities motor strength 5/5 Skin: no rashes, warm and dry Neurologic: PERRL, EOMI,no face palsy, no dysarthria, moves extremities Psychiatric: A+Ox3, euthymic affect Genitourinary: no CVA tenderness Lymphatic: no lymphedema Discharge Data Allergies Allergy/AdvReac Type Severity Reaction Status Date / Time Sulfa (Sulfonamide Allergy Severe TONGUE Verified 09/02/21 10:39 Antibiotics) SWELLING JORGE Inhibitors AdvReac cough Verified 09/02/21 10:39 Consultations 09/02/21 13:40 ED Decision to Admit Stat 09/04/21 07:19 Consult Neurology Routine Ordered Studies 09/02/21 10:06 CT angio head w con Stat CT angio neck with con Stat CT head/brain wo con Stat 09/02/21 13:02 CT chest diagnostic wo con Stat 09/03/21 13:24 MR brain IAC wo/w con Routine Hospital Course (1) Vertigo: (2) Hypoxia: (3) Dyspnea on exertion: Patient presents to the ED due to vertigo/dizziness Says that she had some vertigo/dizziness, some years ago after head injury, reports this resolved with physical therapy However says that it's been now recurrent for past 2 days and today it has been worse and also somewhat unusual for her CT head, CTA head and neck in the ED unremarkable Possible BPPV, will order PT with [facility] Try to avoid Meclizine in her age group Possibly in the setting of hypertension Discussed with Dr. Hector, from neurology, and recommend MRI IMPRESSION: No acute abnormalities. In particular, no evidence of cerebrovascular accident or posterior fossa tumor. 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 Procalcitonin negative. Not likely infection. Troponin negative. Obtained CT chest without contrast 1. Mild diffuse bronchial wall thickening. This is likely chronic. 2. Mild interstitial thickening with scattered tree-in-bud nodular opacities. This favors a chronic infectious bronchiolitis. 3. No focal lung consolidations. 4. Additional findings as described above. Obtained echocardiogram Mild concentric LVH. LV wall motion is normal. LVEF 55 to 60%. RV is normal in size and function. Aortic valve sclerosis mild, without significant aortic valvular stenosis. Grade 1 diastolic dysfunction. Continue supplemental oxygen, as needed we will try to wean off, or obtain 2 step study before DC Patient also may need sleep study as outpatient Can try doxycycline Per record, history of asthma, patient denies any history of asthma, no wheezing on physical exam noted, therefore no steroid indicated at this time Continue to closely monitor 09/04 -2 step study obtained, patient needs 2 L with ambulation May need pulmonary evaluation as outpatient (4) Gout: -Continue home allopurinol (5) Hypertension: -At home on HCTZ/losartan -Blood pressure elevated in the ED, however patient did not take her medications -Continue to closely follow, continue home medication -Currently BP controlled (6) Hypothyroidism: -Continue home levothyroxine (7) Polycythemia: -Hemoglobin elevated at baseline around 16, follows with hematology yearly routinely DVT ppx: SCDs Total Time Total Time Spent Total Time Spent (In Minutes): 40 Discharge Plan Discharge Items Patient Disposition: Home - Self-Care Reason For Visit: HYPOXIA,VERTIGO Discharge Diagnosis: vertigo/ BPPV hypoxia Activity: Per Instructions section Non-emergency contact: Primary Care Provider Call non-emergency contact if: you have any medication questions and your sy mptoms worsen Follow-up/Referrals: Julia Meyers DO [Primary Care Provider] - (Date & Time 09/11/2021 11:00 AM Provider Donald Bhagat MD [facility] ) Diet: Regular Addtl Attending Provider Instructions: Follow up with your primary care doctor, the appointment was scheduled fo you for 09/11/2021. To help with your vertigo, work with physical therapy/ [facility]. The script for therapy was provided for you. If your vertigo does not improve, you may need a referral to vestibular clinic. Use oxygen with ambulation , 2L via NC. 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 Pending Studies at Discharge: No Stand-Alone Forms: My [employer], Smoking Cessation Medications and DC Order Prescriptions: New doxycycline hyclate 100 mg Capsule 100 mg PO BID 3 Days Qty: 6 RF: 0 Continued allopurinol 300 mg tablet 150 mg PO QAM RF: 0 diphenhydramine HCl 25 mg tablet 25 mg PO HS PRN (Reason: Allergy Symptoms) RF: 0 omeprazole 20 mg capsule,delayed release(DR/EC) 20 mg PO DAILY PRN (Reason: GERD) Qty: 30 RF: 2 multivitamin Tablet 1 tab PO QAM RF: 0 Tart Pardo Extract 1,000 mg Capsule 1,000 mg PO UD PRN (Reason: Other) RF: 0 omega-3 fatty acids [Fish Oil Concentrate] 1,000 mg capsule 1,000 mg PO QAM RF: 0 aspirin [Adult Low Dose Aspirin] 81 mg tablet,delayed release (DR/EC) 81 mg PO QAM RF: 0 losartan-hydrochlorothiazide 100-25 mg tablet 1 tab PO QAM RF: 0 levothyroxine 125 mcg tablet 125 mcg PO QAM RF: 0 Zyrtec 10 mg capsule 10 mg PO QAM PRN (Reason: allergy symptoms) RF: 0 Caltrate 600 plus D 600 mg (1,500 mg)-800 unit tablet,chewable 1 tab PO QAM RF: 0 ascorbic acid (vitamin C) 500 mg capsule 500 mg PO QAM RF: 0 Discharge Orders: Discharge Order (Routine); Ordered 09/05/21 Ordered By: Rony Boyle Admission Data Admit Date/Time: 09/02/21 13:16 Attending Provider: Rony Boyle Admit Provider: Rony Boyle Primary Care Provider: Julia Meyers Other Providers: Rony Boyle ; Benjamin Hector
[2021-09-05] MEDS: MULTIVITAMIN TAB PO SCH (09:09)
[2021-09-05] MEDS: allopurinoL 300 MG TAB PO SCH (09:09)
[2021-09-05] MEDS: LOSARTAN/HCTZ 50/12.5MG TAB PO SCH (09:10)
[2021-09-05] MEDS: ASPIRIN 81 MG ECTAB PO SCH (09:10)
[2021-09-05] MEDS: DOXYCYCLINE HYCLATE 100 MG in DEXTROSE 5% 100 ML IV SCH (09:10)
== END 2021-09-05 09:52 | disposition home or self-care (01) | DRG 149 ==
LOC: ED 09:41 → 2W 13:16